=== PATIENT | female | born 1985 | race American Indian/Alaskan Native ===

== ENCOUNTER 2018-12-26 10:45 | Inpatient (IN) | payer OTHER ==
--- NOTE | 2018-12-26 11:03 | Emergency Department Report ---
HPI - General Time Seen by Provider: 12/26/18 10:50 - HPI HPI: Room 7 The patient is a 33-year-old female presented with a chief complaint of abdominal pain. The patient states she's had midepigastric abdominal pain for approximately one week. Patient states pain only comes on when something is touching her abdomen. Patient states today at work and dizzy and then developed tingling in her right arm that lasted approximately 5 minutes and then resolved. The patient states that approximate 5 minutes later her left arm began tingling and this lasted for approximately 1.5 minutes patient states she never had chest pain but may have noticed slight shortness of breath. Patient admits to nausea but denies vomiting. Patient denies history of fever or recent trauma. When asked how she is feeling now the patient states she just feels "nervous." The patient denies pain currently Location: [See above] Duration: [See above] Quality: pain Severity: Currently 0/10 Modifying factors: [see above] Context: [see above] Mode of transportation: [not driving] ED Past Medical Hx - Past Medical History Hx Asthma: Yes (childhood) - Surgical History Additional Surgical History: - Family History Family history: no significant - Social History Smoking Status: Current Every Day Smoker (2/3 pack per day) Substance Use Type: None (denies illicit drug use), Alcohol (occasional) - Medications Home Medications: Home Medications Medication Instructions Recorded Confirmed Last Taken Type Naproxen Sodium [Naproxen Sodium 440 mg PO BID 12/26/18 12/26/18 Unknown History 220mg] ED Review of Systems ROS: Stated complaint: ABDOMINAL PAIN Other details as noted in HPI Constitutional: no symptoms reported Eyes: denies: eye pain ENT: denies: throat pain Respiratory: shortness of breath Cardiovascular: denies: chest pain Endocrine: no symptoms reported Gastrointestinal: abdominal pain, nausea. denies: vomiting Genitourinary: denies: dysuria Musculoskeletal: denies: back pain Neurological: paresthesias Physical Exam - Physical Exam Physical Exam: GENERAL: The patient is well-developed well-nourished female lying on stretcher not appear to be in acute distress. [] HEENT: Normocephalic. Atraumatic. Extraocular motions are intact. Patient has moist mucous membranes. NECK: Supple. Trachea midline CHEST/LUNGS: Clear to auscultation. There is no respiratory distress noted. HEART/CARDIOVASCULAR: Regular. There is no tachycardia. There is no gallop rub or murmur. ABDOMEN: Abdomen is soft, with mild discomfort to palpation in the midepigastric and periumbilical region. Patient has normal bowel sounds. There is no abdominal distention. SKIN: There is no rash. There is no edema. There is no diaphoresis. NEURO: The patient is awake, alert, and oriented. The patient is cooperative. The patient has normal speech MUSCULOSKELETAL: There is no evidence of acute injury. ED Course - Consultations Consultation #1: 12/26/18 14:48 Surgery paged- case discussed with Dr. Morris 12/26/18 19:22 Surgery paged- second CT discussed with Dr. Morris. Admit to hospitalist, liquid diet ED Medical Decision Making - Lab Data Result diagrams: 12/26/18 11:07 12/26/18 11:07 Laboratory Tests 12/26/18 12/26/18 12/26/18 11:07 11:07 11:07 WBC 10.0 RBC 4.50 Hgb 12.6 Hct 37.7 MCV 84 MCH 28 MCHC 33 RDW 14.2 Plt Count 188 Lymph % (Auto) 18.2 [place] % (Auto) 6.3 Eos % (Auto) 1.8 Baso % (Auto) 0.6 Lymph # 1.8 [place] # 0.6 Eos # 0.2 Baso # 0.1 Seg Neutrophils % 73.1 H Seg Neutrophils # 7.3 D-Dimer 212.5 Sodium 140 Potassium 4.7 Chloride 105.4 Carbon Dioxide 25 Anion Gap 14 BUN 14 Creatinine 0.7 Estimated GFR > 60 BUN/Creatinine Ratio 20 Glucose 117 H Calcium 8.5 Total Bilirubin 0.40 AST 14 ALT 15 Alkaline Phosphatase 99 Total Creatine Kinase 175 H CK-MB (CK-2) 1.6 CK-MB (CK-2) Rel Index 0.9 Troponin T < 0.010 Total Protein 6.7 Albumin 3.9 Albumin/Globulin Ratio 1.4 Lipase 16 TSH Free T4 HCG, Qual Urine Color Urine Turbidity Urine pH Ur Specific [place] Urine Protein Urine Glucose (UA) Urine Ketones Urine Blood Urine Nitrite Urine Bilirubin Urine Urobilinogen Ur Leukocyte Esterase Urine WBC (Auto) Urine RBC (Auto) U Epithel Cells (Auto) Urine Mucus 12/26/18 12/26/1819 11:07 11:07 13:15 WBC RBC Hgb Hct MCV MCH MCHC RDW Plt Count Lymph % (Auto) [place] % (Auto) Eos % (Auto) Baso % (Auto) Lymph # [place] # Eos # Baso # Seg Neutrophils % Seg Neutrophils # D-Dimer Sodium Potassium Chloride Carbon Dioxide Anion Gap BUN Creatinine Estimated GFR BUN/Creatinine Ratio Glucose Calcium Total Bilirubin AST ALT Alkaline Phosphatase Total Creatine Kinase CK-MB (CK-2) CK-MB (CK-2) Rel Index Troponin T Total Protein Albumin Albumin/Globulin Ratio Lipase TSH 0.712 Free T4 0.99 HCG, Qual Negative Urine Color Yellow Urine Turbidity Clear Urine pH 7.0 Ur Specific [place] 1.017 Urine Protein <15 mg/dl Urine Glucose (UA) Neg Urine Ketones Neg Urine Blood Neg Urine Nitrite Neg Urine Bilirubin Neg Urine Urobilinogen < 2.0 Ur Leukocyte Esterase Neg Urine WBC (Auto) 1.0 Urine RBC (Auto) 2.0 U Epithel Cells (Auto) 3.0 Urine Mucus Few - EKG Data -: EKG Interpreted by [place] EKG shows normal: sinus rhythm Rate: normal - EKG Data When compared to previous EKG there are: previous EKG unavailable Interpretation: other (no ischemic changes seen) - Radiology Data Radiology results: report reviewed (CT abdomen and pelvis), image reviewed (CT abdomen and pelvis) [place] [address] Cat Scan Report Signed Patient: KIRSTEN VELASCO MR#: [id number] : 1985 Acct:[id number] Age/Sex: 33 / F ADM Date: 12/26/18 Loc: ED Attendin g Dr: Ordering Physician: AME SULTANA MD Date of Service: 12/26/18 Procedure(s): CT abdomen pelvis w con Accession Number(s): [id number] cc: AME SULTANA MD PROCEDURE: CT ABDOMEN PELVIS W CON TECHNIQUE: Computerized axial tomography of the abdomen and pelvis was performed after the IV injection of iod inated nonionic contrast. CT DOSE LENGTH PRODUCT: 3310.4 mGy-cm. HISTORY: Epigastric abdominal pain COMPARISONS: None currently available. FINDINGS: Abdomen: Lung bases and images of the heart are grossly unremarkable. Liver: Decreased heterogeneous attenuation may represent hepatocellular disease, fatty infiltration, or cirrhosis. No suspicious lesion. Gallbladder, stomach, spleen, pancreas, adrenals, and kidneys are unremarkable. No aneurysm normal with. No significant atherosclerotic disease. IVC is unremarkable. There is no periaortic or retroperitoneal adenopathy or mass. Sections of the transverse and left colon are collapsed which limits evaluation for wall thickening. A mild colitis is not entirely excluded. No stranding. Mild to moderate stool in the remainder of the colon without wall thickening. Terminal ileum is unremarkable. Appendix is normal. Series 2:63-78 demonstrates concentric loops of bowel with intervening fat which is suspicious for intussusception. No proximal obstructive pattern identified. No significant wall thickening and stranding noted. Distinct lesion is not clearly evident on this CT scan without oral contrast. Intussusception measures 4.3 cm in length. No free air. No free fluid. Mesentery is unremarkable. Pelvis: Uterus: Limited images are unremarkable. Bladder: Unremarkable. There is no pelvic mass or adenopathy. Inguinal regions are unremarkable. Bones: No suspicious osseous lesions on this limited examination of the skeleton. Metastatic disease better evaluated with bone scan. IMPRESSION: * Focal small bowel intussusception in the mid left small bowel loops without obstructive pattern. * Collapsed colon limits evaluation for wall thickening. Mild colitis is not entirely excluded. * Fatty liver. * 12/26/2018 at 1148 PT: I, Vic Monteiro MD, discussed the findings over the phone with Dr. Sultana. This document is electronically signed by Vic Monteiro MD., Dec 26 2018 02:48:38 PM ET Transcribed By: TYM Dictated By: VIC MONTEIRO MD Electronically Authenticated By: VIC MONTEIRO MD Signed Date/Time: 12/26/18 1450 DD/ 1410 TD/ TT: 12/26/18 1410 [facility] [address] [place] [address] Cat Scan Report Signed Patient: KIRSTEN VELASCO MR#: [id number] : 1985 Acct:[id number] Age/Sex: 33 / F ADM Date: 12/26/18 Loc: ED Attending Dr: Ordering Physician: AME SULTANA MD Date of Service: 12/26/18 Procedure(s): CT abdomen pelvis wo con Accession Number(s): [id number] cc: AME SULTANA MD PROCEDURE: CT ABDOMEN PELVIS WO CON HISTORY: epigastric abdominal pain. Intussusception FINDINGS: Unenhanced CT of the abdomen and pelvis was performed and compared to the prior CT of earlier in the day. The heart is normal in size. The lung bases appear clear. ABDOMEN: The unenhanced liver displays no suspect focal lesion. The spleen, adrenal glands, pancreas, gallbladder are otherwise unremarkable. There is no evidence of hydronephrosis. As noted on the prior examination, there is a left upper quadrant intussusception. On the prior examination, this extended for approximately 4.5 cm long axis of the bowel, coronal image 115. On the current exam it extends for approximately 8.3 cm along the long axis of the bowel as measured on coronal image 116. Additionally, on the current exam there is a second region of short segment intussusception, a xial image 88, coronal image 80, extending for 3 cm along the long axis of the bowel. This appears new in comparison to the prior exam In the interval, gastrointestinal contrast has been administered and has passed the level of both intussusceptions. Gastrointestinal contrast has progressed to the level of the rectum. The liver, spleen, adrenal glands, pancreas are unremarkable. There is a fat-containing umbilical hernia. Pelvis: There is a normal appendix. There is no evidence of diverticulitis. There is no adnexal mass. The urinary bladder is within normal limits. IMPRESSION: ABDOMEN: Two left upper quadrant intussusceptions, one of which is larger than on the prior exam of earlier in the day and the other which is new No bowel obstruction. Gastrointestinal contrast was administered the current examination and has progressed to the level of the rectum Pelvis: Normal appendix This document is electronically signed by Atif Short MD., Dec 26 2018 07:13:28 PM ET Transcribed By: VALERIE Dictated By: ATIF SHORT MD Electronically Authenticated By: ATIF SHORT MD Signed Date/Time: 12/26/181914 DD/ 14 TD/TT: 12/26/181814 - Differential Diagnosis anxiety, pancreatitis, PUD, gastritis Critical care attestation.: If time is entered above; I have spent that time in minutes in the direct care of this critically ill patient, excluding procedure time. ED Disposition Clinical Impression: Acute abdominal pain, Intussusception Disposition: 09 OP ADMIT IP TO THIS HOSP Is pt being admited?: Yes Does the pt Need Aspirin: No Condition: Fair Referrals: DAVON ENCINAS MD [Primary Care Provider] - 3-5 Days Time of Disposition: 19:33 (hospitalist paged (Dr Mcadams))
[2018-12-26 11:20] LABS: Basophils # (Auto) 0.1 K/mm3 (0.0-0.1); Basophils % (Auto) 0.6 % (0.0-1.8); Eosinophils # (Auto) 0.2 K/mm3 (0.0-0.4); Eosinophils % (Auto) 1.8 % (0.0-4.3); Hematocrit 37.7 % (30.3-42.9); Hemoglobin 12.6 gm/dl (10.1-14.3); Lymphocytes # (Auto) 1.8 K/mm3 (1.2-5.4); Lymphocytes % (Auto) 18.2 % (13.4-35.0); Mean Corpuscular HGB Conc 33 % (30-34); Mean Corpuscular Volume 84 fl (79-97); Monocytes # (Auto) 0.6 K/mm3 (0.0-0.8); Monocytes % (Auto) 6.3 % (0.0-7.3); Platelet Count 188 K/mm3 (140-440); Red Cell Distribution Width 14.2 % (13.2-15.2)
[2018-12-26 11:41] LABS: Creatine Kinase MB 1.6 ng/mL (0.0-4.0)
[2018-12-26 11:42] LABS: Alanine Aminotransferase 15 units/L (7-56); Albumin 3.9 g/dL (3.9-5); BUN/Creatinine Ratio 20; Blood Urea Nitrogen 14 mg/dL (7-17); Calcium 8.5 mg/dL (8.4-10.2); Hemolysis Index 3
[2018-12-26 11:48] LABS: Free T4 (Free Thyroxine) 0.99 ng/dL (0.76-1.46)
[2018-12-26 13:29] LABS: Bilirubin,Urine NEG (Negative); Blood,Urine NEG (Negative); Color,Urine Yellow (Yellow); Mucus,Urine FEW /HPF; Protein,Urine <15 mg/dL mg/dL (Negative); Urobilinogen,Urine < 2.0 mg/dL (<2.0)
--- NOTE | 2018-12-26 14:50 | Cat Scan Report ---
PROCEDURE: CT ABDOMEN PELVIS W CON TECHNIQUE: Computerized axial tomography of the abdomen and pelvis was performed after the IV inject ion of iodinated nonionic contrast. CT DOSE LENGTH PRODUCT: 3310.4 mGy-cm. HISTORY: Epigastric abdominal pain COMPARISONS: None currently available. FINDINGS: Abdomen: Lung bases and images of the heart are grossly unremarkable. Liver: Decreased heterogeneous attenuation may represent hepatocellular disease, fatty infiltration, or cirrhosis. No suspicious lesion. Gallbladder, stomach, spleen, pancreas, adrenals, and kidneys are unremarkable. No aneurysm normal with. No significant atherosclerotic disease. IVC is unremarkable. There is no periaortic or retroperitoneal adenopathy or mass. Sections of the transverse and left colon are collapsed which limits evaluation for wall thickening. A mild colitis is not entirely excluded. No stranding. Mild to moderate stool in the remainder of the colon without wall thickening. Terminal ileum is unremarkable. Appendix is normal. Series 2:63-78 demonstrates concentric loops of bowel with intervening fat which is suspicious for in tussusception. No proximal obstructive pattern identified. No significant wall thickening and strandi ng noted. Distinct lesion is not clearly evident on this CT scan without oral contrast. Intussuscepti on measures 4.3 cm in length. No free air. No free fluid. Mesentery is unremarkable. Pelvis: Uterus: Limited images are unremarkable. Bladder: Unremarkable. There is no pelvic mass or adenopathy. Inguinal regions are unremarkable. Bones: No suspicious osseous lesions on this limited examination of the skeleton. Metastatic disease better evaluated with bone scan. IMPRESSION: * Focal small bowel intussusception in the mid left small bowel loops without obstructive pattern. * Collapsed colon limits evaluation for wall thickening. Mild colitis is not entirely excluded. * Fatty liver. * 12/26/2018 at 1148 PT: I, Vic Romero MD, discussed the findings over the phone with Dr. Banerjee. This document is electronically signed by Vic Romero MD., Dec 26 2018 02:48:38 PM ET
--- NOTE | 2018-12-26 19:15 | Cat Scan Report ---
PROCEDURE: CT ABDOMEN PELVIS WO CON HISTORY: epigastric abdominal pain. Intussusception FINDINGS: Unenhanced CT of the abdomen and pelvis was performed and compared to the prior CT of earlier in the day. The heart is normal in size. The lung bases appear clear. ABDOMEN: The unenhanced liver displays no suspect focal lesion. The spleen, adrenal glands, pancreas, gallblad vargas are otherwise unremarkable. There is no evidence of hydronephrosis. As noted on the prior examination, there is a left upper quad rant intussusception. On the prior examination, this extended for approximately 4.5 cm long axis of t he bowel, coronal image 115. On the current exam it extends for approximately 8.3 cm along the long a xis of the bowel as measured on coronal image 116. Additionally, on the current exam there is a secon d region of short segment intussusception, axial image 88, coronal image 80, extending for 3 cm along the long axis of the bowel. This appears new in comparison to the prior exam In the interval, gastrointestinal contrast has been administered and has passed the level of both int ussusceptions. Gastrointestinal contrast has progressed to the level of the rectum. The liver, spleen, adrenal glands, pancreas are unremarkable. There is a fat-containing umbilical hernia. Pelvis: There is a normal appendix. There is no evidence of diverticulitis. There is no adnexal mass. The uri nary bladder is within normal limits. IMPRESSION: ABDOMEN: Two left upper quadrant intussusceptions, one of which is larger than on the prior exam of kellee allen in the day and the other which is new No bowel obstruction. Gastrointestinal contrast was administered the current examination and has prog ressed to the level of the rectum Pelvis: Normal appendix This document is electronically signed by Atif Short MD., Dec 26 2018 07:13:28 PM ET
--- NOTE | 2018-12-26 20:12 | History and Physical Report ---
History of Present Illness Date of examination: 12/26/18 Date of admission: 12/26/2018 Chief complaint: Recurrent abdominal pain for 1 week History of present illness: 32-year-old -[place] female with no significant past medical history comes in for abdominal pain off and on for the last 1 week. Abdominal pain is intermittent in nature. No nausea or vomiting. Patient also has some right- sided numbness which has resolved. Some tingling sensation in the right arm. No lower GI bleed no vomiting or diarrhea. Abdominal pain is 4 on a scale of 1-10. No fever or chills. Patient was at work today Past Medical History Hx Asthma: Yes (childhood) Surgical History Additional Surgical History: Family History Family history: no significant Social History Smoking Status: Current Every Day Smoker (2/3 pack per day) Substance Use Type: None (denies illicit drug use), Alcohol (occasional) Medications Home Medications: Home Medications Medication Instructions Recorded Confirmed Last Taken Type Naproxen Sodium [Naproxen Sodium 440 mg PO BID 12/26/18 12/26/18 Unknown History 220mg] Review of Systems ROS: Stated complaint: ABDOMINAL PAIN Other details as noted in HPI Constitutional: no symptoms reported Eyes: denies: eye pain ENT: denies: throat pain Respiratory: shortness of breath Cardiovascular: denies: chest pain Endocrine: no symptoms reported Gastrointestinal: abdominal pain, nausea. denies: vomiting Genitourinary: denies: dysuria Musculoskeletal: denies: back pain Neurological: paresthesias 14 point review of systems otherwise negative. Medications and Allergies Allergies Allergy/AdvReac Type Severity Reaction Status Date / Time No Known Allergies Allergy Verified 12/26/18 21:21 Home Medications Medication Instructions Recorded Confirmed Last Taken Type Naproxen Sodium [Naproxen Sodium 440 mg PO BID 12/26/18 12/26/18 Unknown History 220mg] Exam - Constitutional Vitals: Temp Pulse Resp BP Pulse Ox 98.0 F 76 24 127/96 99 12/26/18 11:09 12/26/18 12:30 12/26/18 12:30 12/26/18 15:00 12/26/18 12:30 General appearance: Present: no acute distress, well-nourished - EENT Eyes: Present: PERRL ENT: hearing intact, clear oral mucosa - Neck Neck: Present: supple, normal ROM - Respiratory Respiratory effort: normal Respiratory: bilateral: CTA - Cardiovascular Heart rate: 78 Rhythm: regular Heart Sounds: Present: S1 & S2. Absent: rub, click - Extremities Extremities: no ischemia, pulses intact, pulses symmetrical, No edema Peripheral Pulses: within normal limits - Abdominal General gastrointestinal: Present: soft, tender (sebastian umblical area), non- distended, normal bowel sounds Female genitourinary: Present: normal - Integumentary Integumentary: Present: clear, warm, dry - Musculoskeletal Musculoskeletal: gait normal, strength equal bilaterally - Psychiatric Psychiatric: appropriate mood/affect, intact judgment & insight - Neurologic Neurologic: CNII-XII intact, moves all extremities Results - Labs CBC & Chem 7: 12/26/18 11:07 12/26/18 11:07 Labs: Laboratory Last Values WBC 10.0 K/mm3 (4.5-11.0) 12/26/18 11:07 RBC 4.50 M/mm3 (3.65-5.03) 12/26/18 11:07 Hgb 12.6 gm/dl (10.1-14.3) 12/26/18 11:07 Hct 37.7 % (30.3-42.9) 12/26/18 11:07 MCV 84 fl (79-97) 12/26/18 11:07 MCH 28 pg (28-32) 12/26/18 11:07 MCHC 33 % (30-34) 12/26/18 11:07 RDW 14.2 % (13.2-15.2) 12/26/18 11:07 Plt Count 188 K/mm3 (140-440) 12/26/18 11:07 Lymph % (Auto) 18.2 % (13.4-35.0) 12/26/18 11:07 [place] % (Auto) 6.3 % (0.0-7.3) 12/26/18 11:07 Eos % (Auto) 1.8 % (0.0-4.3) 12/26/18 11:07 Baso % (Auto) 0.6 % (0.0-1.8) 12/26/18 11:07 Lymph # 1.8 K/mm3 (1.2-5.4) 12/26/18 11:07 [place] # 0.6 K/mm3 (0.0-0.8) 12/26/18 11:07 Eos # 0.2 K/mm3 (0.0-0.4) 12/26/18 11:07 Baso # 0.1 K/mm3 (0.0-0.1) 12/26/18 11:07 Seg Neutrophils % 73.1 % (40.0-70.0) H 12/26/18 11:07 Seg Neutrophils # 7.3 K/mm3 (1.8-7.7) 12/26/18 11:07 212.5 ng/mlDDU (0-234) 12/26/18 11:07 Sodium 140 mmol/L (137-145) 12/26/18 11:07 Potassium 4.7 mmol/L (3.6-5.0) 12/26/18 11:07 Chloride 105.4 mmol/L (98-107) 12/26/18 11:07 Carbon Dioxide 25 mmol/L (22-30) 12/26/18 11:07 14 mmol/L 12/26/18 11:07 BUN 14 mg/dL (7-17) 12/26/18 11:07 0.7 mg/dL (0.7-1.2) 12/26/18 11:07 Estimated GFR > 60 ml/min 12/26/18 11:07 20 % 12/26/18 11:07 Glucose 117 mg/dL (65-100) H 12/26/18 11:07 Calcium 8.5 mg/dL (8.4-10.2) 12/26/18 11:07 0.40 mg/dL (0.1-1.2) 12/26/18 11:07 AST 14 units/L (5-40) 12/26/18 11:07 ALT 15 units/L (7-56) 12/26/18 11:07 99 units/L (35-129) 12/26/18 11:07 175 units/L (30-135) H 12/26/18 11:07 CK-MB (CK-2) 1.6 ng/mL (0.0-4.0) 12/26/18 11:07 CK-MB (CK-2) Rel Index 0.9 (0-4) 12/26/18 11:07 < 0.010 ng/mL (0.00-0.029) 12/26/18 11:07 6.7 g/dL (6.3-8.2) 12/26/18 11:07 3.9 g/dL (3.9-5) 12/26/18 11:07 1.4 % 12/26/18 11:07 16 units/L (13-60) 12/26/18 11:07 TSH 0.712 mlU/mL (0.270-4.200) 12/26/18 11:07 Free T4 0.99 ng/dL (0.76-1.46) 12/26/18 11:07 HCG, Qual Negative (Negative) 12/26/18 11:07 Yellow (Yellow) 12/26/18 13:15 Clear (Clear) 12/26/18 13:15 7.0 (5.0-7.0) 12/26/18 13:15 Ur Specific [place] 1.017 (1.003-1.030) 12/26/18 13:15 <15 mg/dl mg/dL (Negative) 12/26/18 13:15 Neg mg/dL (Negative) 12/26/18 13:15 Neg mg/dL (Negative) 12/26/18 13:15 Neg (Negative) 12/26/18 13:15 Neg (Negative) 12/26/18 13:15 Neg (Negative) 12/26/18 13:15 < 2.0 mg/dL (<2.0) 12/26/18 13:15 Ur Leukocyte Esterase Neg (Negative) 12/26/18 13:15 1.0 /HPF (0.0-6.0) 12/26/18 13:15 2.0 /HPF (0.0-6.0) 12/26/18 13:15 U Epithel Cells (Auto) 3.0 /HPF (0-13.0) 12/26/18 13:15 Few /HPF 12/26/18 13:15 Short CBC 12/26/18 Range/Units 11:07 WBC 10.0 (4.5-11.0) K/mm3 Hgb 12.6 (10.1-14.3) gm/dl Hct 37.7 (30.3-42.9) % Plt Count 188 (140-440) K/mm3 BMP 12/26/18 11:07 Sodium 140 Potassium 4.7 Chloride 105.4 Carbon Dioxide 25 BUN 14 Creatinine 0.7 Glucose 117 H Calcium 8.5 Cardiac Enzymes 12/26/18 Range/Units 11:07 Total Creatine Kinase 175 H (30-135) units/L CK-MB (CK-2) 1.6 (0.0-4.0) ng/mL Troponin T < 0.010 (0.00-0.029) ng/mL Liver Function 12/26/18 Range/Units 11:07 Total Bilirubin 0.40 (0.1-1.2) mg/dL AST 14 (5-40) units/L ALT 15 (7-56) units/L Alkaline Phosphatase 99 (35-129) units/L Albumin 3.9 (3.9-5) g/dL Urine 12/26/18 Range/Units 13:15 Urine Color Yellow (Yellow) Urine pH 7.0 (5.0-7.0) Ur Specific [place] 1.017 (1.003-1.030) Urine Protein <15 mg/dl (Negative) mg/dL Urine Glucose (UA) Neg (Negative) mg/dL Short CBC 12/26/18 Range/Units 11:07 WBC 10.0 (4.5-11.0) K/mm3 Hgb 12.6 (10.1-14.3) gm/dl Hct 37.7 (30.3-42.9) % Plt Count 188 (140-440) K/mm3 BMP 12/26/18 11:07 Sodium 140 Potassium 4.7 Chloride 105.4 Carbon Dioxide 25 BUN 14 Creatinine 0.7 Glucose 117 H Calcium 8.5 Cardiac Enzymes 12/26/18 Range/Units 11:07 Total Creatine Kinase 175 H (30-135) units/L CK-MB (CK-2) 1.6 (0.0-4.0) ng/mL Troponin T < 0.010 (0.00-0.029) ng/mL Liver Function 12/26/18 Range/Units 11:07 Total Bilirubin 0.40 (0.1-1.2) mg/dL AST 14 (5-40) units/L ALT 15 (7-56) units/L Alkaline Phosphatase 99 (35-129) units/L Albumin 3.9 (3.9-5) g/dL Urine 12/26/18 Range/Units 13:15 Urine Color Yellow (Yellow) Urine pH 7.0 (5.0-7.0) Ur Specific [place] 1.017 (1.003-1.030) Urine Protein <15 mg/dl (Negative) mg/dL Urine Glucose (UA) Neg (Negative) mg/dL - Imaging and Cardiology CT scan - abdomen: report reviewed Imaging and Cardiology: Abd CT /Pelvis #1 IMPRESSION: * Focal small bowel intussusception in the mid left small bowel loops without obstructive pattern. * Collapsed colon limits evaluation for wall thickening. Mild colitis is not entirely excluded. * Fatty liver. * 12/26/2018 at 1148 PT: I, Vic Romero MD, discussed the findings over the phone with Dr. Banerjee. Abd CT/Pelvis#2 IMPRESSION ABDOMEN: Two left upper quadrant intussusceptions, one of which is larger than on the prior exam of earlier in the day and the other which is new No bowel obstruction. Gastrointestinal contrast was administered the current examination and has progressed to the level of the rectum Pelvis: Normal appendix This document is electronically signed by Atif Short MD., Dec 26 2018 07:13:28 PM ET Assessment and Plan Advance Directives: Yes (full code) VTE prophylaxis?: Chemical Plan of care discussed with patient/family: Yes - Patient Problems (1) Intussusception Current Visit: Yes Status: Acute Plan to address problem: Surgical consult requested Patient on clear liquids May need intervention Toradol 15 mg IV every 6 initiated on a when necessary basis No opiates (2) Right sided numbness Current Visit: Yes Status: Acute Plan to address problem: Lasted for a few minutes No workup initiated Conversion reaction (3) DVT prophylaxis Current Visit: Yes Status: Acute Plan to address problem: Lovenox and GI prophylaxis are initiated
[2018-12-26] MEDS ORDERED: SODIUM CHLORIDE FLUSH SYRINGE 10 ML IV PRN (21:16)
[2018-12-26] MEDS ORDERED: TYLENOL PO PRN (21:16)
[2018-12-26] MEDS ORDERED: ZOFRAN IV PRN (21:16)
[2018-12-26] MEDS ORDERED: TORADOL IV PRN (21:17)
--- NOTE | 2018-12-26 21:24 | Event Note ---
Date: 12/26/[address] Banerjee and reviewed chart. There are no signs of obstruction or bowel compromise. Will evaluate in the Am. No urgent surgical intervention is needed tonight based on the report and chart data. Will make NPO after midnight in case decision is made for diagnostic laparoscopy tomorrow.
[2018-12-26] MEDS ORDERED: LOVENOX SUB-Q SCH (22:00)
[2018-12-26] MEDS ORDERED: NACL 0.9% 1000 ML 1,000 ML IV SCH (22:00)
[2018-12-26] MEDS: SODIUM CHLORIDE FLUSH SYRINGE 10 ML IV SCH (22:37)
[2018-12-26] MEDS: PEPCID IV SCH (22:40)
[2018-12-26] MEDS ORDERED: DILAUDID IV PRN (23:27)
--- NOTE | 2018-12-27 07:47 | Consultation ---
History of Present Illness Consult date: 12/27/18 Reason for consult: abdominal pain Requesting physician: AME SULTANA Chief complaint: navel pain - History of present illness History of present illness: 33yo F o/w healthy presents to ED on insistence of her co-workers for abdominal pain. Pt reports that for the past week, she has had discomfort and "pulling" sensation at the umbilicus. Pain does not occur elsewhere. No radiation. Never had this before. Does note the navel pushing out. Denies N/V/F/C. having normal BMs and flatus. Minimal discomfort now. 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 denies: prescription drug abuse, IV drug use Family history: no significant family history Medications and Allergies Allergies Allergy/AdvReac Type Severity Reaction Status Date / Time No Known Allergies Allergy Verified 12/26/18 21:21 Home Medications Medication Instructions Recorded Confirmed Last Taken Type Naproxen Sodium [Naproxen Sodium 440 mg PO BID 12/26/18 12/26/18 Unknown History 220mg] Active Meds: Active Medications Acetaminophen (Tylenol) 650 mg PO Q4H PRN PRN Reason: Pain MILD(1-3)/Fever >100.5/DIAZ Enoxaparin Sodium (Lovenox) 40 mg SUB-Q QDAY@2200 [facility] Last Admin: 12/26/18 22:40 Dose: 40 mg Documented by: Famotidine (Pepcid) 20 mg IV BID [facility] Last Admin: 12/26/18 22:40 Dose: 20 mg Documented by: Hydromorphone HCl (Dilaudid) 0.5 mg IV Q3H PRN PRN Reason: Pain , Severe (7-10) Stop: 12/27/18 23:59 Sodium Chloride (Nacl 0.9% 1000 Ml) 1,000 mls @ 100 mls/hr IV DIRECT [facility] Last Admin: 12/26/18 22:37 Dose: 100 mls/hr Documented by: Ketorolac Tromethamine (Toradol) 15 mg IV Q6H PRN PRN Reason: Pain, Mild (1-3) Stop: 12/31/18 21:16 Ondansetron HCl (Zofran) 4 mg IV Q8H PRN PRN Reason: Nausea And Vomiting Sodium Chloride (Sodium Chloride Flush Syringe 10 Ml) 10 ml IV BID [facility] Last Admin: 12/26/18 22:37 Dose: 10 ml Documented by: Sodium Chloride (Sodium Chloride Flush Syringe 10 Ml) 10 ml IV PRN PRN PRN Reason: LINE FLUSH Review of Systems - Constitutional no fever, no chills, no chronic pain - Cardiovascular no chest pain, no shortness of breath - Respiratory no cough - Gastrointestinal abdominal pain (at the navel), no nausea, no vomiting, no diarrhea, no constipation, no change in bowel habits, no hematemesis, no coffee ground em esis, no BRBPR, no melena, no hematochezia, no dyspepsia/bloating - Genitourinary Genitourinary: no dysuria - Muskuloskeletal no low back pain Exam Vital Signs Pulse Ox 97 12/26/18 10:50 - General physical appearance Positive: no distress, no pain, other (looks well. Very pleasant) - Eyes Positive: normal occular movement - Respiratory Positive: normal expansion, normal respiratory effort, clear to auscultation - Cardiovascular Rhythm: regular - Abdomen Abdomen: Present: soft, bowel sounds normal. Absent: tender, distended, guarding, rigid Hernia: umbilical (reducible) - Integumentary no rash, no growths, no abnormal pigmentation - Neurologic Neurologic: alert and oriented to time, place and person, motor strength and sensation are grossly intact - Psychiatric Psychiatric: appropriate mood/affect, intact judgment & insight Results - Labs 12/26/18 11:07 12/26/18 11:07 Abnormal lab results 12/26/18 12/26/18 Range/Units 11:07 11:07 Seg Neutrophils % 73.1 H (40.0-70.0) % Glucose 117 H (65-100) mg/dL Total Creatine Kinase 175 H (30-135) units/L Diabetes panel 12/26/18 12/26/18 Range/Units 11:07 11:17 Sodium 140 (137-145) mmol/L Potassium 4.7 (3.6-5.0) mmol/L Chloride 105.4 (98-107) mmol/L Carbon Dioxide 25 (22-30) mmol/L BUN 14 (7-17) mg/dL Creatinine 0.7 (0.7-1.2) mg/dL Glucose 117 H (65-100) mg/dL Hemoglobin A1c 5.3 (4-6) % Calcium 8.5 (8.4-10.2) mg/dL AST 14 (5-40) units/L ALT 15 (7-56) units/L Alkaline Phosphatase 99 (35-129) units/L Total Protein 6.7 (6.3-8.2) g/dL Albumin 3.9 (3.9-5) g/dL Thyroid panel 12/26/18 Range/Units 11:07 TSH 0.712 (0.270-4.200) mlU/mL Calcium panel 12/26/18 Range/Units 11:07 Calcium 8.5 (8.4-10.2) mg/dL Albumin 3.9 (3.9-5) g/dL Pituitary panel 12/26/18 12/26/18 Range/Units 11:07 11:07 Sodium 140 (137-145) mmol/L Potassium 4.7 (3.6-5.0) mmol/L Chloride 105.4 (98-107) mmol/L Carbon Dioxide 25 (22-30) mmol/L BUN 14 (7-17) mg/dL Creatinine 0.7 (0.7-1.2) mg/dL Glucose 117 H (65-100) mg/dL Calcium 8.5 (8.4-10.2) mg/dL TSH 0.712 (0.270-4.200) mlU/mL Adrenal panel 12/26/18 Range/Units 11:07 Sodium 140 (137-145) mmol/L Potassium 4.7 (3.6-5.0) mmol/L Chloride 105.4 (98-107) mmol/L Carbon Dioxide 25 (22-30) mmol/L BUN 14 (7-17) mg/dL Creatinine 0.7 (0.7-1.2) mg/dL Glucose 117 H (65-100) mg/dL Calcium 8.5 (8.4-10.2) mg/dL Total Bilirubin 0.40 (0.1-1.2) mg/dL AST 14 (5-40) units/L ALT 15 (7-56) units/L Alkaline Phosphatase 99 (35-129) units/L Total Protein 6.7 (6.3-8.2) g/dL Albumin 3.9 (3.9-5) g/dL - Imaging CT scan - abdomen: report reviewed, image reviewed CT scan - pelvis: report reviewed, image reviewed Assessment and Plan - Patient Problems (1) Intussusception Current Visit: Yes Status: Acute Plan to address problem: Pt stable. Pt has transient, non-obstructing intussusception. Most likely is a non-leading point variant. This is a common, non-emergency issue. No surgery necessary for this issue. Pt is completely asymptomatic. Please see Medical Description below. Pt can resume diet and be discharged home from my standpoint. Intussusception without a lead point tends to be transient. Although an intussusception with a lead point tends to be persistent or recurrent, it can also be transient. Transient nonobstructing intussusception without a lead point is known to occur in both adults and children and occurs more frequently than was previously reported. Transient intussusception of the small bowel has been reported in adults with celiac disease (,2) and Crohn disease (,6) but is most frequently detected incidentally and is presumed to be innocuous. Manifestations of Intussusception Intussusception without a Lead Point Intussusception without a lead point may manifest as vague abdominal pain; however, most cases are discovered incidentally at CT performed for other reasons. An intussusception without a lead point does not generally cause proximal bowel obstruction. Please call with questions. time=30min (2) Umbilical hernia without mention of obstruction or gangrene Current Visit: Yes Status: Acute Qualifiers: Obstruction and gangrene presence: without obstruction or gangrene Qualified Code(s): K42.9 - Umbilical hernia without obstruction or gangrene Plan to address problem: This appears to be the cause of her pain. She has a reducible hernia. This can be repaired as an out-pt. Have offered that she can see us in the office to schedule surgery. Advised that she needs to stop smoking for two weeks prior to surgery. Ok to discharge home. Please call with questions. time=30min
[2018-12-27 08:13] VITALS: BP 119/68
--- NOTE | 2018-12-27 08:21 | XRay Report ---
ABDOMEN, 2 views: History: Followup intussusception, abdominal pain. Oral contrast has advanced into the colon since the CT performed yesterday. There is no evidence of free air beneath the diaphragms. The gas pattern within the abdomen is unremarkable. There is no evidence of bowel dilatation, significant air-fluid levels, or pathologic calcifications. Organ shadows are unremarkable. IMPRESSION: Unremarkable abdomen.
[2018-12-27 08:55] LABS: Basophils % (Auto) 0.6 % (0.0-1.8); Eosinophils # (Auto) 0.2 K/mm3 (0.0-0.4); Eosinophils % (Auto) 2.9 % (0.0-4.3); Hematocrit 38.2 % (30.3-42.9); Hemoglobin 12.5 gm/dl (10.1-14.3); Lymphocytes # (Auto) 2.1 K/mm3 (1.2-5.4); Mean Corpuscular HGB Conc 33 % (30-34); Mean Corpuscular Volume 85 fl (79-97); Monocytes # (Auto) 0.5 K/mm3 (0.0-0.8); Monocytes % (Auto) 5.9 % (0.0-7.3); Platelet Count 183 K/mm3 (140-440); Red Blood Count 4.49 M/mm3 (3.65-5.03); Red Cell Distribution Width 14.3 % (13.2-15.2)
[2018-12-27 09:24] LABS: Alanine Aminotransferase 13 units/L (7-56); Albumin 3.8 g/dL (3.9-5); BUN/Creatinine Ratio 14; Blood Urea Nitrogen 10 mg/dL (7-17); Calcium 8.1 mg/dL (8.4-10.2); Hemolysis Index 18
[2018-12-27] MEDS: PEPCID IV SCH (10:20)
[2018-12-27] MEDS: SODIUM CHLORIDE FLUSH SYRINGE 10 ML IV SCH (10:20)
--- NOTE | 2018-12-27 10:22 | Discharge Summary ---
Providers - Providers Date of Admission: 12/26/18 19:37 Date of discharge: 12/27/18 Attending physician: DEANNA WISE 12/26/18 19:29 Consult to Physician [CONS] Urgent Comment: Dr. Banerjee spoke with Dr. Morris @ 1927 Consulting Provider: GARY MORRIS Physician Instructions: Reason For Exam: intussusception Primary care physician: [facility] MD ANA Hospitalization Condition: Fair Hospital course: Patient is 32-year-old -[place] female with no significant past medical history presented with abdominal pain off and on for the last 1 week. No nausea or vomiting. Patient seen and evaluated in ED. CT Abd revealed small bowel intussusception. She was admitted and surgeon consulted. She was evaluated by Surgeon, Dr. Morris and he determined that patient has transient, non- obstructing intussusception. Most likely is a non-leading point variant. No surgery necessary for this issue. He recommended resume diet and discharge home. She also has umbilical hernia to be followed as outpatient. Disposition: TO HOME OR SELFCARE - Discharge Diagnoses (1) Acute abdominal pain Status: Acute (2) Intussusception Status: Acute (3) Umbilical hernia without mention of obstruction or gangrene Status: Acute Qualifiers: Obstruction and gangrene presence: without obstruction or gangrene Qualified Code(s): K42.9 - Umbilical hernia without obstruction or gangrene (4) Morbid obesity with BMI of 40.0-44.9, adult Status: Acute Core Measure Documentation - Palliative Care Palliative Care/ Comfort Measures: Not Applicable - Core Measures Any of the following diagnoses?: none Exam - Constitutional Vitals: Temp Pulse Resp BP Pulse Ox 98.3 F 72 18 119/68 100 12/27/18 07:44 12/27/18 07:44 12/27/18 07:44 12/27/18 07:44 12/27/18 07:44 Plan Activity: no restrictions Diet: low fat, low cholesterol, low salt Additional Instructions: 1.[facility]. 2.Follow up with Dr. Morris, surgeon in 1 week Follow up with: DAVON ENCINAS MD [Primary Care Provider] - 3-5 Days
== END 2018-12-27 12:30 | disposition home or self-care (01) | DRG 394 ==
LOC: ED 10:45 → 3B-SURG 19:37
PROVIDERS: ADMIT Internal Medicine; ATTEND Internal Medicine
DX: K42.9 Umbilical hernia without obstruction or gangrene (principal); K56.1 Intussusception; J45.909 Unspecified asthma, uncomplicated; F17.200 Nicotine dependence, unspecified, uncomplicated; Z79.899 Other long term (current) drug therapy; Z72.89 Other problems related to lifestyle
CPT/HCPCS: 36415; 74019; 74176; 74177; 80053; 81001; 82550; 82553; 83036; 83690; 84439; 84443; 84484; 84703; 85025; 85379; 93005; 93010; G0378; J1650; J7030; Q9967

== ENCOUNTER 2019-01-19 01:19 | Emergency (ER) | payer OTHER ==
[2019-01-19] MEDS ORDERED: ASPIRIN PO ONE (01:28)
[2019-01-19 02:07] LABS: Basophils # (Auto) 0.1 K/mm3 (0.0-0.1); Basophils % (Auto) 0.5 % (0.0-1.8); Eosinophils # (Auto) 0.4 K/mm3 (0.0-0.4); Eosinophils % (Auto) 3.2 % (0.0-4.3); Hematocrit 38.3 % (30.3-42.9); Hemoglobin 12.6 gm/dl (10.1-14.3); Lymphocytes # (Auto) 2.6 K/mm3 (1.2-5.4); Lymphocytes % (Auto) 23.7 % (13.4-35.0); Mean Corpuscular HGB Conc 33 % (30-34); Mean Corpuscular Volume 84 fl (79-97); Monocytes # (Auto) 0.9 K/mm3 (0.0-0.8); Monocytes % (Auto) 7.8 % (0.0-7.3); Platelet Count 149 K/mm3 (140-440); Red Blood Count 4.57 M/mm3 (3.65-5.03); Red Cell Distribution Width 13.8 % (13.2-15.2)
[2019-01-19 02:29] LABS: BUN/Creatinine Ratio 20; Blood Urea Nitrogen 14 mg/dL (7-17); Calcium 9.2 mg/dL (8.4-10.2); Hemolysis Index 24
[2019-01-19 06:11] VITALS: BP 147/89
--- NOTE | 2019-01-19 06:53 | Emergency Department Report ---
ED General Adult HPI - General Chief complaint: Chest Pain Stated complaint: PAIN IN LEFT ARM X 3DAYS Time Seen by Provider: 01/19/19 06:31 Source: patient Mode of arrival: Ambulatory Limitations: No Limitations - History of Present Illness Initial comments: 33-year-old female with occasional brief tingling of the left arm and shoulder. Symptoms last for seconds. Patient states that she feels like she slept on it wrong. She is not complaining of chest pain pressure or tightness. She has no associated symptoms of nausea vomiting or sweating or leg cramps or swelling. She states that she feels anxious during these periods. She states she also d oes a lot of lifting at work. She is asymptomatic the time of my encounter. -: Gradual, days(s), week(s) Location: left, upper extremity Severity scale (0 -10): 0 Quality: other (tingling) Consistency: intermittent Improves with: none Worsens with: none Associated Symptoms: denies other symptoms Treatments Prior to Arrival: none - Related Data Home Medications Medication Instructions Recorded Confirmed Last Taken Naproxen Sodium [Naproxen Sodium 440 mg PO BID 12/26/18 12/26/18 Unknown 220mg] Allergies Allergy/AdvReac Type Severity Reaction Status Date / Time No Known Allergies Allergy Verified 12/26/18 21:21 ED Review of Systems ROS: Stated complaint: PAIN IN LEFT ARM X 3DAYS Other details as noted in HPI Constitutional: denies: chills, fever Eyes: denies: eye pain, eye discharge, vision change ENT: denies: ear pain, throat pain Respiratory: denies: cough, shortness of breath, wheezing Cardiovascular: denies: chest pain, palpitations Endocrine: no symptoms reported Gastrointestinal: denies: abdominal pain, nausea, diarrhea Genitourinary: denies: urgency, dysuria, discharge Musculoskeletal: denies: back pain, joint swelling, arthralgia Skin: denies: rash, lesions Neurological: paresthesias. denies: headache, weakness Psychiatric: denies: anxiety, depression Hematological/Lymphatic: denies: easy bleeding, easy bruising ED Past Medical Hx - Past Medical History Previous Medical History?: Yes Hx Headaches / Migraines: Yes Hx Asthma: Yes (childhood) - Surgical History Past Surgical History?: Yes Additional Surgical History: - Family History Family history: no significant - Social History Smoking Status: Current Every Day Smoker Substance Use Type: Alcohol - Medications Home Medications: Home Medications Medication Instructions Recorded Confirmed Last Taken Type Naproxen Sodium [Naproxen Sodium 440 mg PO BID 12/26/18 12/26/18 Unknown History 220mg] ED Physical Exam - General Limitations: No Limitations General appearance: alert, in no apparent distress - Head Head exam: Present: atraumatic, normocephalic - Eye Eye exam: Present: normal appearance. Absent: scleral icterus - ENT ENT exam: Present: mucous membranes moist - Neck Neck exam: Present: normal inspection. Absent: tenderness, meningismus - Respiratory Respiratory exam: Present: normal lung sounds bilaterally. Absent: respiratory distress - Cardiovascular Cardiovascular Exam: Present: regular rate, normal rhythm. Absent: systolic murmur, diastolic murmur, rubs, gallop - GI/Abdominal GI/Abdominal exam: Present: soft, normal bowel sounds. Absent: distended, tenderness, guarding, rebound, rigid - Extremities Exam Extremities exam: Present: normal inspection, normal capillary refill. Absent: pedal edema, joint swelling, calf tenderness - Back Exam Back exam: Present: normal inspection - Neurological Exam Neurological exam: Present: alert, oriented X3, CN II-XII intact. Absent: motor sensory deficit - Psychiatric Psychiatric exam: Present: normal affect, normal mood - Skin Skin exam: Present: warm, dry, intact, normal color. Absent: rash ED Course Vital Signs 01/19/19 01/19/19 01:23 06:08 Temperature 99.0 F 98 F Pulse Rate 85 76 Respiratory 18 13 Rate Blood Pressure 135/85 Blood Pressure 147/89 [Left] O2 Sat by Pulse 99 99 Oximetry - Reevaluation(s) Reevaluation #1: Negative workup. Symptoms appropriate for outpatient follow-up. 01/19/19 06:51 ED Medical Decision Making - Lab Data Result diagrams: 01/19/19 01:53 01/19/19 01:53 Laboratory Results - last 24 hr 01/19/19 01/19/19 01/19/19 01:53 01:53 01:53 WBC 11.1 H RBC 4.57 Hgb 12.6 Hct 38.3 MCV 84 MCH 28 MCHC 33 RDW 13.8 Plt Count 149 Lymph % (Auto) 23.7 [place] % (Auto) 7.8 H Eos % (Auto) 3.2 Baso % (Auto) 0.5 Lymph # 2.6 [place] # 0.9 H Eos # 0.4 Baso # 0.1 Seg Neutrophils % 64.8 Seg Neutrophils # 7.2 Sodium 140 Potassium 3.8 Chloride 104.3 Carbon Dioxide 24 Anion Gap 16 BUN 14 Creatinine 0.7 Estimated GFR > 60 BUN/Creatinine Ratio 20 Glucose 125 H Calcium 9.2 Troponin T < 0.010 HCG, Qual Negative 01/19/19 04:33 WBC RBC Hgb Hct MCV MCH MCHC RDW Plt Count Lymph % (Auto) [place] % (Auto) Eos % (Auto) Baso % (Auto) Lymph # [place] # Eos # Baso # Seg Neutrophils % Seg Neutrophils # Sodium Potassium Chloride Carbon Dioxide Anion Gap BUN Creatinine Estimated GFR BUN/Creatinine Ratio Glucose Calcium Troponin T < 0.010 HCG, Qual - EKG Data -: EKG Interpreted by Ri EKG shows normal: sinus rhythm, axis, intervals, QRS complexes, ST-T waves Rate: normal - EKG Data Interpretation: no acute changes - Radiology Data Radiology results: report reviewed Chest x-ray no acute process Critical care attestation.: If time is entered above; I have spent that time in minutes in the direct care of this critically ill patient, excluding procedure time. ED Disposition Clinical Impression: Paresthesia, Anxiety Disposition: DC-01 TO HOME OR SELFCARE Is pt being admited?: No Does the pt Need Aspirin: No Condition: Stable Instructions: Paresthesia (ED), Anxiety (ED) Additional Instructions: Return any acute change or persistent symptoms. Follow-up with primary care provider. Referrals: ALBERTO RUIZ MD [Primary Care Provider] - 3-5 Days [facility] [Provider Group] - 3-5 Days Time of Disposition: 06:53
--- NOTE | 2019-01-19 08:53 | XRay Report ---
PROCEDURE: XR CHEST 1V AP TECHNIQUE: Chest radiograph single view. HISTORY: Chest Pain COMPARISONS: None . FINDINGS: No mediastinal shift. Cardiac silhouette is not enlarged. No pneumothorax, effusion, or focal pulmona ry opacity identified. No acute skeletal findings. IMPRESSION: No acute pulmonary finding identified. This document is electronically signed by Juan Pablo Gracia MD., January 19 2019 08:51:21 AM ET
== END 2019-01-19 07:02 | disposition home or self-care (01) ==
LOC: ED 01:19
DX: F41.9 Anxiety disorder, unspecified (principal); R20.0 Anesthesia of skin; G43.909 Migraine, unspecified, not intractable, without status migrainosus; J45.909 Unspecified asthma, uncomplicated; F17.200 Nicotine dependence, unspecified, uncomplicated; Z79.899 Other long term (current) drug therapy
CPT/HCPCS: 36415; 71045; 80048; 84484; 84703; 85025; 93005; 93010; 99284

== ENCOUNTER 2019-05-13 00:36 | Emergency (ER) | payer OTHER ==
[2019-05-13] MEDS ORDERED: ASPIRIN 325 MG TAB PO ONE (02:25)
[2019-05-13 02:43] LABS: Basophils # (Auto) 0.1 K/mm3 (0.0-0.1); Basophils % (Auto) 0.7 % (0.0-1.8); Eosinophils # (Auto) 0.3 K/mm3 (0.0-0.4); Eosinophils % (Auto) 2.6 % (0.0-4.3); Hemoglobin 12.3 gm/dl (10.1-14.3); Lymphocytes # (Auto) 2.6 K/mm3 (1.2-5.4); Lymphocytes % (Auto) 22.6 % (13.4-35.0); Mean Corpuscular HGB Conc 33 % (30-34); Mean Corpuscular Volume 82 fl (79-97); Monocytes # (Auto) 0.7 K/mm3 (0.0-0.8); Monocytes % (Auto) 5.7 % (0.0-7.3); Platelet Count 189 K/mm3 (140-440); Red Blood Count 4.53 M/mm3 (3.65-5.03); Red Cell Distribution Width 13.2 % (13.2-15.2)
[2019-05-13 03:04] LABS: BUN/Creatinine Ratio 23; Blood Urea Nitrogen 18 mg/dL (7-17); Calcium 8.7 mg/dL (8.4-10.2); Hemolysis Index 7
--- NOTE | 2019-05-13 03:16 | Emergency Department Report ---
ED General Adult HPI - General Chief complaint: Neuro Symptoms/Deficit Stated complaint: LT ARM TINGLING Time Seen by Provider: 05/13/19 03:07 Source: patient, EMS Mode of arrival: Ambulatory Limitations: No Limitations - History of Present Illness Initial comments: Patient is 33 years old female with no significant past medical history. Patient presented to the ER complaining of numbness and tingling sensation to the left arm and sometimes to the right arm for the last several weeks. Patient also stated that she has some chest pain tonight. Patient denied any shortness of breath, cough, fever or chills. Patient also complaining of neck pain but denied any weakness, bowel or bladder incontinence. -: month(s) (2) Radiation: extremity - Related Data Home Medications Medication Instructions Recorded Confirmed Last Taken Naproxen Sodium [Naproxen Sodium 440 mg PO BID 12/26/18 12/26/18 Unknown 220mg] Allergies Allergy/AdvReac Type Severity Reaction Status Date / Time No Known Allergies Allergy Verified 12/26/18 21:21 ED Review of Systems ROS: Stated complaint: LT ARM TINGLING Other details as noted in HPI Comment: All other systems reviewed and negative Constitutional: denies: chills, fever Respiratory: denies: cough Cardiovascular: denies: chest pain Gastrointestinal: denies: abdominal pain, nausea, vomiting, diarrhea, constipation, hematemesis ED Past Medical Hx - Past Medical History Previous Medical History?: Yes Hx Headaches / Migraines: Yes Hx Asthma: Yes (childhood) - Surgical History Past Surgical History?: Yes Additional Surgical History: - Social History Smoking Status: Former Smoker Substance Use Type: None - Medications Home Medications: Home Medications Medication Instructions Recorded Confirmed Last Taken Type Naproxen Sodium [Naproxen Sodium 440 mg PO BID 12/26/18 12/26/18 Unknown History 220mg] ED Physical Exam - General Limitations: No Limitations General appearance: alert, in no apparent distress - Head Head exam: Present: atraumatic, normocephalic, normal inspection - Eye Eye exam: Present: normal appearance - ENT ENT exam: Present: normal exam, normal orophraynx, mucous membranes moist - Neck Neck exam: Present: normal inspection, full ROM. Absent: tenderness, meningismus, lymphadenopathy, thyromegaly - Respiratory Respiratory exam: Present: normal lung sounds bilaterally - Cardiovascular Cardiovascular Exam: Present: regular rate, normal rhythm, normal heart sounds - GI/Abdominal GI/Abdominal exam: Present: soft, normal bowel sounds. Absent: distended, tenderness, guarding, rebound, rigid, organomegaly, mass, bruit, pulsatile mass, hernia - Extremities Exam Extremities exam: Present: normal inspection, full ROM, normal capillary refill. Absent: tenderness, pedal edema, calf tenderness - Back Exam Back exam: Present: normal inspection, full ROM. Absent: CVA tenderness (R), CVA tenderness (L), muscle spasm, paraspinal tenderness, vertebral tenderness - Neurological Exam Neurological exam: Present: alert, oriented X3, CN II-XII intact, normal gait, reflexes normal - Psychiatric Psychiatric exam: Present: normal mood - Skin Skin exam: Present: warm, intact, normal color ED Course Vital Signs 05/13/19 05/13/19 05/13/19 01:02 02:55 03:00 Temperature 98.8 F Pulse Rate 86 79 79 Respiratory 18 21 22 Rate Blood Pressure 116/78 136/89 O2 Sat by Pulse 97 Oximetry ED Medical Decision Making - Lab Data Result diagrams: 05/13/19 02:28 05/13/19 02:28 - EKG Data -: EKG Interpreted by De EKG shows normal: sinus rhythm Rate: normal - EKG Data Interpretation: no acute changes - Radiology Data Radiology results: report reviewed - Medical Decision Making Patient is 33 years old female with no significant past medical history. Patient presented to the ER complaining of numbness and tingling sensation to the left arm and sometimes to the right arm for the last several weeks. Patient also stated that she has some chest pain tonight. Patient denied any shortness of breath, cough, fever or chills. Patient also complaining of neck pain but denied any weakness, bowel or bladder incontinence. Patient EKG is unremarkable. Labs reviewed and is unremarkable including a tro ponin. Chest x-ray is negative for acute finding. CT brain is negative for acute finding. Cervical spine x-ray is unremarkable. Patient's symptoms is consistent with cervical radiculopathy however patient also advised to follow-up with her primary care physician for further cardiac workup including stress test. Patient also advised emergency room if she is not feeling better. Critical care attestation.: If time is entered above; I have spent that time in minutes in the direct care of this critically ill patient, excluding procedure time. ED Disposition Clinical Impression: Chest pain, Cervical radiculopathy Disposition: TO HOME OR SELFCARE Is pt being admited?: No Condition: Stable Instructions: Chest Pain (ED), Cervical Radiculopathy (ED) Referrals: DAVON ENCINAS MD [Primary Care Provider] - 3-5 Days
--- NOTE | 2019-05-13 03:27 | Cat Scan Report ---
CT head/brain wo con INDICATION: Numbness and tingling to arms with cp. TECHNIQUE: Routine CT head without contrast. All CT scans at this location are performed using CT dos e reduction for ALARA by means of automated exposure control. COMPARISON: None. FINDINGS: BRAIN / INTRACRANIAL CONTENTS: No acute hemorrhage, mass effect, midline shift, or hydrocephalus. No appreciable acute large territorial or lacunar infarct. No chronic infarct or focal atrophy. Normal b rain volume and ventricular/sulcal size for age. ORBITS: No significant abnormality of visualized orbits. SINUSES / MASTOIDS: No significant abnormality of visualized sinuses and mastoid air cells. ADDITIONAL FINDINGS: None. IMPRESSION: 1. No acute intracranial abnormality on noncontrast CT of the brain. Signer Name: Stefany Abarca MD Signed: 05/13/2019 3:23 AM Workstation Name: [id number]
--- NOTE | 2019-05-13 03:42 | XRay Report ---
CHEST 1 VIEW INDICATION / CLINICAL INFORMATION: Chest Pain. COMPARISON: Chest radiograph 01/19/2019 FINDINGS: SUPPORT DEVICES: None. HEART / MEDIASTINUM: No significant abnormality. LUNGS / PLEURA: No significant pulmonary or pleural abnormality. No pneumothorax. ADDITIONAL FINDINGS: No significant additional findings. IMPRESSION: 1. No acute findings. Signer Name: Stefany Abarca MD Signed: 05/13/2019 3:37 AM Workstation Name: [id number]
--- NOTE | 2019-05-13 04:08 | XRay Report ---
XR CERVICAL SPINE HISTORY: Neck pain COMPARISON: None. TECHNIQUE: 3 view(s) of the cervical spine obtained. FINDINGS: Vertebrae: Normal alignment. No displaced fracture or significant abnormality. Disc Spaces:No significant abnormality. Facet Joints:No significant abnormality. Prevertebral Soft Tissues:No significant abnormality. Additional findings: None. IMPRESSION: 1. No significant abnormality of the cervical spine. Signer Name: Stefany Abarca MD Signed: 05/13/2019 4:04 AM Workstation Name: [id number]
[2019-05-13 05:29] VITALS: BP 126/73
== END 2019-05-13 05:30 | disposition home or self-care (01) ==
LOC: ED 00:36
DX: M54.12 Radiculopathy, cervical region (principal); R07.89 Other chest pain; G43.909 Migraine, unspecified, not intractable, without status migrainosus; J45.909 Unspecified asthma, uncomplicated; Z87.891 Personal history of nicotine dependence; Z79.899 Other long term (current) drug therapy
CPT/HCPCS: 36415; 70450; 71045; 72040; 80048; 84484; 85025; 93005; 93010; 99285

== ENCOUNTER 2019-05-22 13:49 | Emergency (ER) | payer SELFPAY ==
[2019-05-22 13:53] VITALS: BP 123/80
--- NOTE | 2019-05-22 14:01 | Emergency Department Report ---
Blank Doc - Documentation Documentation: 33-year-old female that presents with headache and dizziness with nausea. This initial assessment/diagnostic orders/clinical plan/treatment(s) is/are subject to change based on patient's health status, clinical progression and re- assessment by fellow clinical providers in the ED. Further treatment and workup at subsequent clinical providers discretion. Patient/guardians urged not to elope from the ED as their condition may be serious if not clinically assessed and managed. Initial orders include: 1- Patient sent to [facility] for further evaluation and treatment 2- labs 3- UA
--- NOTE | 2019-05-22 14:22 | Emergency Department Report ---
ED Headache HPI - General Chief Complaint: Headache Stated Complaint: NAUSEA/HEADACHE/DIZZY Time Seen by Provider: 05/22/19 14:00 - History of Present Illness Initial Comments: Patient is 33 years old female with no significant past medical history. Patient presented to the ER complaining of headache, right ear pain and right sinus pain. Patient also stated that she's been having some dizziness. Patient denied any fever or neck pain. No weakness numbness or tingling sensation. Patient also seen here 3 days ago for left arm numbness and had a CT brain which was negative for acute finding. Allergies/Adverse Reactions: Allergies No Known Allergies Allergy (Verified 12/26/18 21:21) Home Medications: Ambulatory Orders Naproxen Sodium [Naproxen Sodium 220mg] 440 mg PO BID 12/26/18 Cyclobenzaprine HCl [Flexeril 5 MG TAB] 5 mg PO TID PRN #21 tab 05/13/19 Naproxen [Naprosyn] 500 mg PO BID #14 tablet 05/13/19 ED Review of Systems ROS: Stated complaint: NAUSEA/HEADACHE/DIZZY Other details as noted in HPI Comment: All other systems reviewed and negative Constitutional: denies: chills Respiratory: denies: cough Cardiovascular: denies: chest pain Gastrointestinal: nausea. denies: abdominal pain, vomiting Musculoskeletal: denies: back pain Neurological: headache. denies: weakness, numbness, paresthesias, confusion, abnormal gait ED Past Medical Hx - Past Medical History Previous Medical History?: Yes Hx Headaches / Migraines: Yes Hx Asthma: Yes (childhood) - Surgical History Past Surgical History?: Yes Additional Surgical History: - Social History Smoking Status: Former Smoker Substance Use Type: None - Medications Home Medications: Home Medications Medication Instructions Recorded Confirmed Last Taken Type Naproxen Sodium [Naproxen Sodium 440 mg PO BID 12/26/18 12/26/18 Unknown History 220mg] Cyclobenzaprine HCl [Flexeril 5 MG 5 mg PO TID PRN #21 tab 05/13/19 Unknown Rx TAB] Naproxen [Naprosyn] 500 mg PO BID #14 tablet 05/13/19 Unknown Rx ED Physical Exam - General Limitations: No Limitations General appearance: alert, in no apparent distress - Head Head exam: Present: atraumatic, normocephalic, normal inspection - Eye Eye exam: Present: normal appearance - ENT ENT exam: Present: mucous membranes moist, other (right ear with serous otitis media) - Neck Neck exam: Present: normal inspection, full ROM. Absent: tenderness, meningismus, lymphadenopathy, thyromegaly - Respiratory Respiratory exam: Present: normal lung sounds bilaterally - Cardiovascular Cardiovascular Exam: Present: regular rate, normal rhythm, normal heart sounds - Extremities Exam Extremities exam: Present: normal inspection, full ROM, normal capillary refill - Back Exam Back exam: Present: normal inspection, full ROM. Absent: CVA tenderness (R), CVA tenderness (L) - Neurological Exam Neurological exam: Present: alert, oriented X3, CN II-XII intact, normal gait, reflexes normal. Absent: abnormal gait, motor sensory deficit - Psychiatric Psychiatric exam: Present: normal mood - Skin Skin exam: Present: warm, intact, normal color ED Course Vital Signs 05/22/19 13:52 Temperature 98.4 F Pulse Rate 91 H Respiratory 18 Rate Blood Pressure 123/80 O2 Sat by Pulse 98 Oximetry ED Medical Decision Making - Radiology Data Radiology results: report reviewed - Medical Decision Making Patient is 33 years old female with no significant past medical history. Patient presented to the ER complaining of headache, right ear pain and right sinus pain. Patient also stated that she's been having some dizziness. Patient denied any fever or neck pain. No weakness numbness or tingling sensation. Patient also seen here 3 days ago for left arm numbness and had a CT brain which was negative for acute finding. Patient's symptoms is consistent with sinusitis with serous otitis media. Patient will be given Augmentin and prednisone and advised to follow-up with her primary care physician in the next 2-3 days and to attend to the ER if symptoms are not improved Critical care attestation.: If time is entered above; I have spent that time in minutes in the direct care of this critically ill patient, excluding procedure time. ED Disposition Clinical Impression: Headache, Sinusitis, Serous otitis media Disposition: TO HOME OR SELFCARE Is pt being admited?: No Condition: Stable Instructions: Acute Bacterial Rhinosinusitis (ED), Acute Headache (ED) Referrals: [facility] [Provider Group] - 3-5 Days
== END 2019-05-22 14:31 | disposition home or self-care (01) ==
LOC: ED 13:49
DX: J32.9 Chronic sinusitis, unspecified (principal); H65.91 Unspecified nonsuppurative otitis media, right ear; G43.909 Migraine, unspecified, not intractable, without status migrainosus; J45.909 Unspecified asthma, uncomplicated; Z87.891 Personal history of nicotine dependence

== ENCOUNTER 2019-08-01 06:22 | Emergency (ER) | payer OTHER ==
[2019-08-01 07:36] LABS: Basophils % (Auto) 0.5 % (0.0-1.8); Eosinophils # (Auto) 0.2 K/mm3 (0.0-0.4); Eosinophils % (Auto) 2.3 % (0.0-4.3); Hematocrit 37.3 % (30.3-42.9); Hemoglobin 12.3 gm/dl (10.1-14.3); Lymphocytes # (Auto) 2.7 K/mm3 (1.2-5.4); Lymphocytes % (Auto) 25.9 % (13.4-35.0); Mean Corpuscular HGB Conc 33 % (30-34); Mean Corpuscular Volume 81 fl (79-97); Monocytes # (Auto) 0.5 K/mm3 (0.0-0.8); Platelet Count 203 K/mm3 (140-440); Red Blood Count 4.58 M/mm3 (3.65-5.03); Red Cell Distribution Width 13.8 % (13.2-15.2)
[2019-08-01 08:00] LABS: BUN/Creatinine Ratio 19; Blood Urea Nitrogen 15 mg/dL (7-17); Calcium 8.9 mg/dL (8.4-10.2); Hemolysis Index 32
--- NOTE | 2019-08-01 08:42 | XRay Report ---
CHEST 1 VIEW INDICATION: Chest pain that radiates between breasts and sternum. COMPARISON: 05/13/2019 FINDINGS: Support devices: None. Heart: Within normal limits. Lungs/Pleura: No acute air space or interstitial disease. Additional findings: None. IMPRESSION: Normal AP chest. Signer Name: Chivo Abdul Jr, MD Signed: 08/01/2019 8:38 AM Workstation Name: [id number]
--- NOTE | 2019-08-01 13:07 | Emergency Department Report ---
ED General Adult HPI - General Chief complaint: Chest Pain Stated complaint: CHEST PAIN Time Seen by Provider: 08/01/19 12:23 Source: patient Mode of arrival: Ambulatory Limitations: No Limitations - History of Present Illness Initial comments: The patient presents to the emergency department a chief complaint of left-sided breast pain that has been present for the last 4 months. Patient states that she gets a sharp pain in her left breast and a pulling sensation intermittently for the last 4 months. The patient states she's been to the emergency department multiple times and had a cardiac workup but no one has addressed her breast pain. Patient states that she initially thought her breast pain was from lifting at her job but she since quit that job and still has breast pain. Patient denies shortness of breath or headache. -: Gradual, month(s) (4) Location: chest Radiation: non-radiation Severity scale (0 -10): 1 Quality: aching Consistency: constant Improves with: none Worsens with: none Associated Symptoms: denies other symptoms Treatments Prior to Arrival: none - Related Data Home Medications Medication Instructions Recorded Confirmed Last Taken Naproxen Sodium [Naproxen Sodium 440 mg PO BID 12/26/18 12/26/18 Unknown 220mg] Previous Rx's Medication Instructions Recorded Last Taken Type Cyclobenzaprine HCl [Flexeril 5 MG 5 mg PO TID PRN #21 tab 05/13/19 Unknown Rx TAB] Naproxen [Naprosyn] 500 mg PO BID #14 tablet 05/13/19 Unknown Rx Amoxicillin/Potassium Clav 1 each PO BID #20 tablet 05/22/19 Unknown Rx [Augmentin 875-125 Tablet] Ondansetron [Zofran Odt] 4 mg PO Q8HR PRN #14 tab.rapdis 05/22/19 Unknown Rx Prednisone [predniSONE 10 mg 10 mg PO .TAPER #1 tab.ds.pk 05/22/19 Unknown Rx (6-Day Pack, 21 Tabs)] traMADoL [Ultram 50 MG tab] 50 mg PO Q4HR PRN #14 tablet 05/22/19 Unknown Rx Allergies Allergy/AdvReac Type Severity Reaction Status Date / Time No Known Allergies Allergy Verified 12/26/18 21:21 ED Review of Systems ROS: Stated complaint: CHEST PAIN Other details as noted in HPI Comment: All other systems reviewed and negative Constitutional: denies: chills, fever Eyes: denies: eye pain, eye discharge, vision change ENT: denies: ear pain, throat pain Respiratory: denies: cough, shortness of breath, wheezing Cardiovascular: denies: chest pain, palpitations Endocrine: no symptoms reported Gastrointestinal: denies: abdominal pain, nausea, diarrhea Genitourinary: denies: urgency, dysuria, discharge Musculoskeletal: denies: back pain, joint swelling, arthralgia Skin: denies: rash, lesions Neurological: denies: headache, weakness, paresthesias Psychiatric: denies: anxiety, depression Hematological/Lymphatic: denies: easy bleeding, easy bruising ED Past Medical Hx - Past Medical History Previous Medical History?: Yes Hx Headaches / Migraines: Yes Hx Asthma: Yes (childhood) - Surgical History Past Surgical History?: Yes Additional Surgical History: - Social History Smoking Status: Former Smoker Substance Use Type: Alcohol - Medications Home Medications: Home Medications Medication Instructions Recorded Confirmed Last Taken Type Naproxen Sodium [Naproxen Sodium 440 mg PO BID 12/26/18 12/26/18 Unknown History 220mg] Cyclobenzaprine HCl [Flexeril 5 MG 5 mg PO TID PRN #21 tab 05/13/19 Unknown Rx TAB] Naproxen [Naprosyn] 500 mg PO BID #14 tablet 05/13/19 Unknown Rx Amoxicillin/Potassium Clav 1 each PO BID #20 tablet 05/22/19 Unknown Rx [Augmentin 875-125 Tablet] Ondansetron [Zofran Odt] 4 mg PO Q8HR PRN #14 tab.rapdis 05/22/19 Unknown Rx Prednisone [predniSONE 10 mg 10 mg PO .TAPER #1 tab.ds.pk 05/22/19 Unknown Rx (6-Day Pack, 21 Tabs)] traMADoL [Ultram 50 MG tab] 50 mg PO Q4HR PRN #14 tablet 05/22/19 Unknown Rx ED Physical Exam - General Limitations: No Limitations General appearance: alert, in no apparent distress - Head Head exam: Present: atraumatic, normocephalic - Eye Eye exam: Present: normal appearance, PERRL, EOMI - ENT ENT exam: Present: mucous membranes moist - Neck Neck exam: Present: normal inspection - Respiratory Respiratory exam: Present: normal lung sounds bilaterally. Absent: respiratory distress - Cardiovascular Cardiovascular Exam: Present: regular rate, normal rhythm. Absent: systolic murmur, diastolic murmur, rubs, gallop - GI/Abdominal GI/Abdominal exam: Present: soft, normal bowel sounds. Absent: distended, tenderness - Extremities Exam Extremities exam: Present: normal inspection - Back Exam Back exam: Present: normal inspection - Neurological Exam Neurological exam: Present: alert, oriented X3, CN II-XII intact. Absent: motor sensory deficit - Psychiatric Psychiatric exam: Present: normal affect, normal mood - Skin Skin exam: Present: warm, dry, intact, normal color. Absent: rash ED Course Vital Signs 08/01/19 06:34 Temperature 98.6 F Pulse Rate 101 H Respiratory 18 Rate Blood Pressure 133/91 O2 Sat by Pulse 97 Oximetry ED Medical Decision Making - Lab Data Result diagrams: 08/01/19 06:52 08/01/19 06:52 Lab Results 08/01/19 08/01/19 08/01/19 Range/Units 06:52 06:52 06:52 WBC 10.6 (4.5-11.0) K/mm3 RBC 4.58 (3.65-5.03) M/mm3 Hgb 12.3 (10.1-14.3) gm/dl Hct 37.3 (30.3-42.9) % MCV 81 (79-97) fl MCH 27 L (28-32) pg MCHC 33 (30-34) % RDW 13.8 (13.2-15.2) % Plt Count 203 (140-440) K/mm3 Lymph % (Auto) 25.9 (13.4-35.0) % [facility] % (Auto) 5.0 (0.0-7.3) % Eos % (Auto) 2.3 (0.0-4.3) % Baso % (Auto) 0.5 (0.0-1.8) % Lymph # 2.7 (1.2-5.4) K/mm3 [facility] # 0.5 (0.0-0.8) K/mm3 Eos # 0.2 (0.0-0.4) K/mm3 Baso # 0.0 (0.0-0.1) K/mm3 Seg Neutrophils % 66.3 (40.0-70.0) % Seg Neutrophils # 7.0 (1.8-7.7) K/mm3 Sodium 141 (137-145) mmol/L Potassium 4.1 (3.6-5.0) mmol/L Chloride 103.7 (98-107) mmol/L Carbon Dioxide 21 L (22-30) mmol/L Anion Gap 20 mmol/L BUN 15 (7-17) mg/dL Creatinine 0.8 (0.7-1.2) mg/dL Estimated GFR > 60 ml/min BUN/Creatinine Ratio 19 % Glucose 144 H (65-100) mg/dL Calcium 8.9 (8.4-10.2) mg/dL Troponin T < 0.010 (0.00-0.029) ng/mL HCG, Qual Negative (Negative) 08/01/19 08/01/19 Range/Units 09:29 12:26 WBC (4.5-11.0) K/mm3 RBC (3.65-5.03) M/mm3 Hgb (10.1-14.3) gm/dl Hct (30.3-42.9) % MCV (79-97) fl MCH (28-32) pg MCHC (30-34) % RDW (13.2-15.2) % Plt Count (140-440) K/mm3 Lymph % (Auto) (13.4-35.0) % [facility] % (Auto) (0.0-7.3) % Eos % (Auto) (0.0-4.3) % Baso % (Auto) (0.0-1.8) % Lymph # (1.2-5.4) K/mm3 [facility] # (0.0-0.8) K/mm3 Eos # (0.0-0.4) K/mm3 Baso # (0.0-0.1) K/mm3 Seg Neutrophils % (40.0-70.0) % Seg Neutrophils # (1.8-7.7) K/mm3 Sodium (137-145) mmol/L Potassium (3.6-5.0) mmol/L Chloride (98-107) mmol/L Carbon Dioxide (22-30) mmol/L Anion Gap mmol/L BUN (7-17) mg/dL Creatinine (0.7-1.2) mg/dL Estimated GFR ml/min BUN/Creatinine Ratio % Glucose (65-100) mg/dL Calcium (8.4-10.2) mg/dL Troponin T < 0.010 < 0.010 (0.00-0.029) ng/mL HCG, Qual (Negative) - Radiology Data Radiology results: report reviewed - Medical Decision Making Plan of care discussed Critical care attestation.: If time is entered above; I have spent that time in minutes in the direct care of this critically ill patient, excluding procedure time. ED Disposition Clinical Impression: Breast pain Disposition: DC- TO HOME OR SELFCARE Is pt being admited?: No Does the pt Need Aspirin: No Condition: Stable Additional Instructions: return if worse Referrals: PRIMARY CAREMD [Primary Care Provider] - 3-5 Days BRANDEN ROBLERO MD [Staff Physician] - 3-5 Days Time of Disposition: 13:07
[2019-08-01 13:23] VITALS: BP 157/98
== END 2019-08-01 13:22 | disposition home or self-care (01) ==
LOC: ED 06:22
DX: N64.4 Mastodynia (principal); G43.909 Migraine, unspecified, not intractable, without status migrainosus; J45.909 Unspecified asthma, uncomplicated; Z87.891 Personal history of nicotine dependence
CPT/HCPCS: 36415; 71045; 80048; 84484; 84703; 85025; 93005; 93010; 99284

== ENCOUNTER 2020-11-12 06:05 | Emergency (ER) | payer SELFPAY ==
[2020-11-12] MEDS ORDERED: ASPIRIN 325 MG TAB PO ONE (06:22)
--- NOTE | 2020-11-12 06:53 | XRay Report ---
CHEST 2 VIEWS INDICATION / CLINICAL INFORMATION: chest pain. COMPARISON: 08/01/2019 FINDINGS: SUPPORT DEVICES: None. HEART / MEDIASTINUM: No significant abnormality. LUNGS / PLEURA: No significant pulmonary or pleural abnormality. No pneumothorax. ADDITIONAL FINDINGS: No significant additional findings. IMPRESSION: 1. No acute findings. Signer Name: Kenneth Francis MD Signed: 11/12/2020 6:49 AM Workstation Name: [id number]
[2020-11-12 07:25] LABS: Basophils # (Auto) 0.1 K/mm3 (0.0-0.1); Basophils % (Auto) 0.7 % (0.0-1.8); Eosinophils # (Auto) 0.2 K/mm3 (0.0-0.4); Eosinophils % (Auto) 1.9 % (0.0-4.3); Hematocrit 32.7 % (30.3-42.9); Hemoglobin 10.7 gm/dl (10.1-14.3); Lymphocytes # (Auto) 2.3 K/mm3 (1.2-5.4); Lymphocytes % (Auto) 28.4 % (13.4-35.0); Mean Corpuscular HGB Conc 33 % (30-34); Mean Corpuscular Volume 81 fl (79-97); Monocytes # (Auto) 0.6 K/mm3 (0.0-0.8); Monocytes % (Auto) 7.2 % (0.0-7.3); Platelet Count 208 K/mm3 (140-440); Red Blood Count 4.02 M/mm3 (3.65-5.03); Red Cell Distribution Width 14.1 % (13.2-15.2)
[2020-11-12 07:49] LABS: Alanine Aminotransferase 11 units/L (7-56); Albumin 3.7 g/dL (3.9-5); BUN/Creatinine Ratio 16; Blood Urea Nitrogen 13 mg/dL (7-17); Calcium 8.7 mg/dL (8.4-10.2); Hemolysis Index 3
--- NOTE | 2020-11-12 10:13 | Emergency Department Report ---
ED Chest Pain HPI - General Chief Complaint: Chest Pain Stated Complaint: CHEST PAIN/SOB Time Seen by Provider: 11/12/20 09:53 Source: patient Mode of arrival: Ambulatory Limitations: No Limitations - History of Present Illness Initial Comments: This is a 35-year-old -[place] female who presents to the emergency department from home with a complaint of midsternal to left-sided chest pain, left-sided neck pain and left upper back pain that has been going on intermittently for "a minute" that really means intermittently over the past 2 to 3 years. More recently the patient says that the symptoms have returned and are now associated with some dizziness and shortness of breath. She denies any fever, nausea, vomiting, lower extremity swelling, diaphoresis. She has not taken anything for symptoms prior to presentation. No recent travel or sick contacts at home. She is a former smoker and denies any illicit drug use. She has an appointment on the of this month to establish care with a primary care physician. Currently she describes the chest and back pain as a 6 out of 10 in intensity. No known aggravating or alleviating factors. The pain seems to be worse at night. - Related Data Home Medications Medication Instructions Recorded Confirmed Last Taken Naproxen Sodium [Naproxen Sodium 440 mg PO BID 12/26/18 12/26/18 Unknown 220mg] Previous Rx's Medication Instructions Recorded Last Taken Type Cyclobenzaprine HCl [Flexeril 5 MG 5 mg PO TID PRN #21 tab 05/13/19 Unknown Rx TAB] Naproxen [Naprosyn] 500 mg PO BID #14 tablet 05/13/19 Unknown Rx Amoxicillin/Potassium Clav 1 each PO BID #20 tablet 05/22/19 Unknown Rx [Augmentin 875-125 Tablet] Ondansetron [Zofran Odt] 4 mg PO Q8HR PRN #14 tab.rapdis 05/22/19 Unknown Rx Prednisone [predniSONE 10 mg 10 mg PO .TAPER #1 tab.ds.pk 05/22/19 Unknown Rx (6-Day Pack, 21 Tabs)] traMADoL [Ultram 50 MG tab] 50 mg PO Q4HR PRN #14 tablet 05/22/19 Unknown Rx Ibuprofen [Motrin 800 MG tab] 800 mg PO Q8HR PRN #20 tablet 11/12/20 Unknown Rx Allergies Allergy/AdvReac Type Severity Reaction Status Date / Time No Known Allergies Allergy Verified 12/26/18 21:21 Heart Score - HEART Score History: Slightly suspicious EKG: Normal Age: < 45 Risk factors: 1-2 risk factors Troponin: < normal limit HEART Score: 1 - EKG Read Time Time EKG Completed: 06:29 EKG Read Time: 06:37 ED Review of Systems ROS: Stated complaint: CHEST PAIN/SOB Other details as noted in HPI Comment: All other systems reviewed and negative Constitutional: denies: chills, fever Eyes: denies: eye pain, vision change ENT: denies: ear pain, throat pain Respiratory: denies: cough, shortness of breath Cardiovascular: chest pain. denies: palpitations, edema Gastrointestinal: denies: abdominal pain, vomiting Genitourinary: denies: dysuria, discharge Musculoskeletal: back pain. denies: joint swelling Skin: denies: rash, lesions Neurological: denies: headache, weakness ED Past Medical Hx - Past Medical History Previous Medical History?: Yes Hx Headaches / Migraines: Yes Hx Asthma: Yes (childhood) - Surgical History Past Surgical History?: Yes Additional Surgical History: - Social History Smoking Status: Former Smoker Substance Use Type: Alcohol - Medications Home Medications: Home Medications Medication Instructions Recorded Confirmed Last Taken Type Naproxen Sodium [Naproxen Sodium 440 mg PO BID 12/26/18 12/26/18 Unknown History 220mg] Cyclobenzaprine HCl [Flexeril 5 MG 5 mg PO TID PRN #21 tab 05/13/19 Unknown Rx TAB] Naproxen [Naprosyn] 500 mg PO BID #14 tablet 05/13/19 Unknown Rx Amoxicillin/Potassium Clav 1 each PO BID #20 tablet 05/22/19 Unknown Rx [Augmentin 875-125 Tablet] Ondansetron [Zofran Odt] 4 mg PO Q8HR PRN #14 tab.rapdis 05/22/19 Unknown Rx Prednisone [predniSONE 10 mg 10 mg PO .TAPER #1 tab.ds.pk 05/22/19 Unknown Rx (6-Day Pack, 21 Tabs)] traMADoL [Ultram 50 MG tab] 50 mg PO Q4HR PRN #14 tablet 05/22/19 Unknown Rx Ibuprofen [Motrin 800 MG tab] 800 mg PO Q8HR PRN #20 tablet 11/12/20 Unknown Rx ED Physical Exam - General Limitations: No Limitations - Other Other exam information: GENERAL: The patient is well-developed well-nourished. HENT: Normocephalic. Atraumatic. Patient has moist mucous membranes. EYES: Extraocular motions are intact.. NECK: Supple. Trachea is midline. CHEST/LUNGS: Clear to auscultation. There is no respiratory distress noted. HEART/CARDIOVASCULAR: Regular. There is no tachycardia. There is no murmur. ABDOMEN: Abdomen is soft, nontender. Patient has normal bowel sounds. SKIN: Skin is warm and dry. NEURO: The patient is awake, alert, and oriented. The patient is cooperative. The patient has no focal neurologic deficits. Normal speech. MUSCULOSKELETAL: There is no tenderness or deformity. There is no limitation range of motion. ED Course Vital Signs 11/12/20 11/12/20 11/12/20 06:19 10:21 11:06 Temperature 98.2 F Pulse Rate 82 70 Respiratory 16 18 18 Rate Blood Pressure 143/91 Blood Pressure 120/86 [Left] O2 Sat by Pulse 99 98 99 Oximetry 11/12/20 11/12/20 11:16 11:23 Temperature Pulse Rate 70 Respiratory 11 L 18 Rate Blood Pressure 120/76 Blood Pressure [Left] O2 Sat by Pulse 100 Oximetry WILLIS score - Willis Score Age > 65: (0) No Aspirin use within the Past 7 Days: (0) No 3 or more CAD Risk Factors: (0) No 2 or more Angina events in past 24 hrs: (1) Yes Known CAD with more than 50% Stenosis: (0) No Elevated Cardiac Markers: (0) No ST Deviation Greater than 0.5mm: (0) No WILLIS Score: 1 ED Medical Decision Making - Lab Data Result diagrams: 11/12/20 06:48 11/12/20 06:48 Lab Results 11/12/20 11/12/20 11/12/20 Range/Units 06:48 06:48 10:05 WBC 8.2 (4.5-11.0) K/mm3 RBC 4.02 (3.65-5.03) M/mm3 Hgb 10.7 (10.1-14.3) gm/dl Hct 32.7 (30.3-42.9) % MCV 81 (79-97) fl MCH 27 L (28-32) pg MCHC 33 (30-34) % RDW 14.1 (13.2-15.2) % Plt Count 208 (140-440) K/mm3 Lymph % (Auto) 28.4 (13.4-35.0) % [facility] % (Auto) 7.2 (0.0-7.3) % Eos % (Auto) 1.9 (0.0-4.3) % Baso % (Auto) 0.7 (0.0-1.8) % Lymph # (Auto) 2.3 (1.2-5.4) K/mm3 [facility] # (Auto) 0.6 (0.0-0.8) K/mm3 Eos # (Auto) 0.2 (0.0-0.4) K/mm3 Baso # (Auto) 0.1 (0.0-0.1) K/mm3 Seg Neutrophils % 61.8 (40.0-70.0) % Seg Neutrophils # 5.1 (1.8-7.7) K/mm3 D-Dimer (0-234) ng/mlDDU Sodium 141 (137-145) mmol/L Potassium 4.3 (3.6-5.0) mmol/L Chloride 107.1 H (98-107) mmol/L Carbon Dioxide 25 (22-30) mmol/L Anion Gap 13 mmol/L BUN 13 (7-17) mg/dL Creatinine 0.8 (0.6-1.2) mg/dL Estimated GFR > 60 ml/min BUN/Creatinine Ratio 16 % Glucose 124 H (65-100) mg/dL Calcium 8.7 (8.4-10.2) mg/dL Total Bilirubin 0.40 (0.1-1.2) mg/dL AST 10 (5-40) units/L ALT 11 (7-56) units/L Alkaline Phosphatase 99 (35-129) units/L Troponin T < 0.010 (0.00-0.029) ng/mL Total Protein 6.4 (6.3-8.2) g/dL Albumin 3.7 L (3.9-5) g/dL Albumin/Globulin Ratio 1.4 % HCG, Qual (Negative) 11/12/20 11/12/20 Range/Units 10:08 10:08 WBC (4.5-11.0) K/mm3 RBC (3.65-5.03) M/mm3 Hgb (10.1-14.3) gm/dl Hct (30.3-42.9) % MCV (79-97) fl MCH (28-32) pg MCHC (30-34) % RDW (13.2-15.2) % Plt Count (140-440) K/mm3 Lymph % (Auto) (13.4-35.0) % [facility] % (Auto) (0.0-7.3) % Eos % (Auto) (0.0-4.3) % Baso % (Auto) (0.0-1.8) % Lymph # (Auto) (1.2-5.4) K/mm3 [facility] # (Auto) (0.0-0.8) K/mm3 Eos # (Auto) (0.0-0.4) K/mm3 Baso # (Auto) (0.0-0.1) K/mm3 Seg Neutrophils % (40.0-70.0) % Seg Neutrophils # (1.8-7.7) K/mm3 D-Dimer 163.33 (0-234) ng/mlDDU Sodium (137-145) mmol/L Potassium (3.6-5.0) mmol/L Chloride (98-107) mmol/L Carbon Dioxide (22-30) mmol/L Anion Gap mmol/L BUN (7-17) mg/dL Creatinine (0.6-1.2) mg/dL Estimated GFR ml/min BUN/Creatinine Ratio % Glucose (65-100) mg/dL Calcium (8.4-10.2) mg/dL Total Bilirubin (0.1-1.2) mg/dL AST (5-40) units/L ALT (7-56) units/L Alkaline Phosphatase (35-129) units/L Troponin T (0.00-0.029) ng/mL Total Protein (6.3-8.2) g/dL Albumin (3.9-5) g/dL Albumin/Globulin Ratio % HCG, Qual Negative (Negative) - EKG Data -: EKG Interpreted by Or EKG shows normal: sinus rhythm, axis, intervals, QRS complexes, ST-T waves Rate: normal - EKG Data When compared to previous EKG there are: no significant change Interpretation: normal EKG, unchanged when compared t (08/01/19) - Radiology Data Radiology results: image reviewed interpreted by me: Chest x-ray does not show any acute process. There are no pleural effusions, obvious pneumonia and there is no pneumothorax. No significant cardiomegaly. - Medical Decision Making This patient presents to the emergency department with complaint of left-sided chest pain, left upper back pain, and some left-sided neck pain. It is not necessarily a radiation of her chest discomfort. On examination she has normal sounding heart and lungs to auscultation. She does not appear in any respiratory or acute distress. EKG does not show any morphology consistent with ST elevation myocardial infarction or any signs of ischemia or arrhythmia. Chest x-ray does not show any pneumonia, pleural effusions, pneumothorax, or any other acute process. The patient's labs have been unremarkable including CBC, metabolic panel, negative troponin and a negative D-dimer. Vital signs have been reassuring throughout her ED course including being afebrile. The patient is low on the heart and WILLIS score. For all these reason she appears safe for discharge home at this time. Her contact information has been sent over to the [facility], and someone from their office should be contacting her shortly for close outpatient follow-up as per our [facility] low risk chest pain protocol. She has been instructed to return to the emergency department with any worsening of her symptoms or with any acute distress. Critical Care Time: No Critical care attestation.: If time is entered above; I have spent that time in minutes in the direct care of this critically ill patient, excluding procedure time. ED Disposition Clinical Impression: Chest pain Qualifiers: Chest pain type: unspecified Qualified Code(s): R07.9 - Chest pain, unspecified Back pain Qualifiers: Back pain location: back pain in unspecified location Chronicity: unspecified Back pain laterality: left Qualified Code(s): M54.9 - Dorsalgia, unspecified Disposition: DC-01 TO HOME OR SELFCARE Is pt being admited?: No Condition: Stable Instructions: Acute Back Pain, Adult, Nonspecific Chest Pain, Adult Additional Instructions: Please follow-up with a primary care physician in the next few days. I am sending your contact information over to the [facility] [place], and someone from their office should be contacting you shortly for close outpatient follow-up. Just in case, I am giving a referral for one of their general house worker, Dr. Luna. Return to the emergency department with any worsening of your symptoms, new or concerning symptoms not addressed during this current emergency department visit, or with any acute distress. Prescriptions: Ibuprofen [Motrin 800 MG tab] 800 mg PO Q8HR PRN #20 tablet PRN Reason: Pain , Severe (7-10) Referrals: PRIMARY CAREMD [Primary Care Provider] - 2-3 Days SUZIE LUNA MD [Staff Physician] - 2-3 Days Forms: Work/School Release Form(ED) Time of Disposition: 10:59
[2020-11-12] MEDS ORDERED: KETOROLAC 30 MG/1 ML INJ IM ONE (10:46)
--- NOTE | 2020-11-12 11:32 | Electrocardiograph Report ---
[facility] Test Date: 2020-11-12 Test Time: 06:29:20 Pat Name: KIRSTEN VELASCO Department: Room: Gender: F Laundry Laborer: FRANDY : 1985 Requested By: ED DOC Order Number: [id number] Reading MD: Moise Luna Measurements Intervals [place] Rate: 78 P: 28 [place]: 186 QRS: 49 QRSD: 77 T: 36 QT: 378 QTc: 431 Interpretive Statements Sinus rhythm No previous ECG available for comparison Electronically Signed On 11-12-2020 11:32:32 EDT by Moise Luna
[2020-11-12 12:23] VITALS: BP 120/76
== END 2020-11-12 12:00 | disposition home or self-care (01) ==
LOC: ED 06:05
DX: R07.89 Other chest pain (principal); M54.9 Dorsalgia, unspecified; I10 Essential (primary) hypertension; J45.909 Unspecified asthma, uncomplicated; Z79.899 Other long term (current) drug therapy; Z87.891 Personal history of nicotine dependence
CPT/HCPCS: 36415; 71046; 80053; 84484; 84703; 85025; 85379; 93005; 96372; 99283; J1885

== ENCOUNTER 2022-01-24 14:32 | Emergency (ER) | payer OTHER | END 2022-01-24 17:49 | disposition left against medical advice (07) | LOC: ED 14:32 | DX: Z00.8 Encounter for other general examination (principal); Z53.21 Procedure and treatment not carried out due to patient leaving prior to being seen by health care provider ==